=== PATIENT | male | born 1965 | race Caucasian/White ===

== ENCOUNTER 2017-08-01 16:11 | Emergency (ER) | payer SELFPAY ==
--- NOTE | 2017-08-01 18:15 | ER Document Report ---
ED Medical Screen (RME) - General Chief Complaint: Chest Pain Stated Complaint: CHEST PAIN Time Seen by Provider: 08/01/17 18:13 Mode of Arrival: Medic Information source: Patient Notes: 51-year-old male chronic back pain presents with complaints of sudden left flank pain radiating to his umbilicus. Patient notes abdominal distention I have greeted and performed a rapid initial assessment of this patient. A comprehensive ED assessment and evaluation of the patient, analysis of test results and completion of the medical decision making process will be conducted by additional ED providers. PHYSICAL EXAMINATION: GENERAL: Well-appearing, well-nourished and in moderate distress HEAD: Atraumatic, normocephalic. EYES: Pupils equal round extraocular movements intact, conjunctiva are normal. ENT: Nares patent NECK: Normal range of motion LUNGS: No respiratory distress Abdominal exam: Abdominal distention tenderness upon palpation Musculoskeletal: Normal range of motion NEUROLOGICAL: Normal speech, normal gait. PSYCH: Normal mood, normal affect. SKIN: Warm, Dry, normal turgor, no rashes or lesions noted. Immediate concerns for dissection, patient is diabetic but will be taken emergently for CT angiogram of abdomen chest and pelvis, patient denies any renal issues I discussed renal failure and necessity for contrast and patient agrees TRAVEL OUTSIDE OF THE [place] IN LAST 30 DAYS: No - Related Data Allergies/Adverse Reactions: No Known Allergies Allergy (Verified 08/01/17 16:15) Physical Exam - Vital signs Vitals: Temp Pulse Resp BP Pulse Ox 98.7 F 113 H 18 117/80 98 08/01/17 16:23 08/01/17 16:23 08/01/17 16:23 08/01/17 16:23 08/01/17 16:23 Course - Vital Signs Vital signs: Temp Pulse Resp BP Pulse Ox 98.7 F 113 H 18 117/80 98 08/01/17 16:23 08/01/17 16:23 08/01/17 16:23 08/01/17 16:23 08/01/17 16:23
--- NOTE | 2017-08-01 18:57 | RADIOLOGY REPORT (SQ) ---
EXAM DESCRIPTION: CTA CHEST COMPLETED DATE/TIME: 08/01/2017 6:42 pm REASON FOR STUDY: evaluate aorta COMPARISON: None. TECHNIQUE: CT scan of the chest performed using helical scanning technique with dynamic intravenous contrast injection. Images reviewed with lung, soft tissue and bone windows. Reconstructed coronal and sagittal MPR images reviewed. Additional 3 dimensional post-processing performed to develop Maximal Intensity Projection images (ND P). All images stored on PACS. All CT scanners at this facility use dose modulation, iterative reconstruction, and/or weight based d osing when appropriate to reduce radiation dose to as low as reasonably achievable (ALARA). [facility]: Dose Right [facility]: CareDose [facility]: Dose Right [facility]: Teradose 4D [facility]: Needish CONTRAST TYPE AND DOSE: 100 mL Isovue 370 Contrast bolus optimized for the pulmonary arteries. Not diagnostic for the aorta. RENAL FUNCTION: Not available RADIATION DOSE: CT Rad equipment meets quality standard of care and radiation dose reduction techniq ues were employed. CTDIvol: 16.2 - 28.3 mGy. DLP: 2173 mGy-cm. . LIMITATIONS: None. FINDINGS: LUNGS AND PLEURA: No masses, infiltrates, pneumothorax. No pleural effusions, calcificati ons. AORTA AND GREAT VESSELS: No aneurysm. Contrast bolus not optimized for the aorta. HEART: No pericardial effusion. No significant coronary artery calcifications. PULMONARY ARTERIES: No emboli visualized in the main pulmonary arteries or the segmental branches. HILAR AND MEDIASTINAL STRUCTURES: No identified masses or abnormal nodes. HARDWARE: None in the chest. UPPER ABDOMEN: See results under abdominal CT scan THYROID AND OTHER SOFT TISSUES: No masses. No adenopathy. BONES: No acute or significant finding. 3D MIPS: Confirm above findings. OTHER: No other significant finding. IMPRESSION: No evidence for a thoracic aortic aneurysm or dissection. No evidence for pulmonary emb olic disease. No acute consolidations or pleural effusions are identified. Other findings as noted above COMMENT: Quality ID # [id number]: Final reports with documentation of one or more dose reduction techniques (e.g., Automated exposure control, adjustment of the mA and/or kV according to patient size, use of iterative reconstruction technique) TECHNICAL DOCUMENTATION: JOB ID: [id number]- All Rights Reserved
--- NOTE | 2017-08-01 19:03 | RADIOLOGY REPORT (SQ) ---
EXAM DESCRIPTION: CTA ABDOMEN/PELVIS W WO COMPLETED DATE/TIME: 08/01/2017 6:42 pm REASON FOR STUDY: evaluate aorta COMPARISON: None. TECHNIQUE: CT scan of the abdominal aorta extending to the iliac bifurcation performed with intraven ous contrast using helical scanning technique with dynamic intravenous contrast injection. Images rev iewed with lung, soft tissue, and bone windows. Reconstructed coronal and sagittal MPR images reviewe d. All images stored on PACS. Advanced 3D imaging as volume rendering, MIPS, SSD performed? yes All CT scanners at this facility use dose modulation, iterative reconstruction, and/or weight based d osing when appropriate to reduce radiation dose to as low as reasonably achievable (ALARA). [facility]: Dose Right [facility]: CareDose [facility]: Dose Right [facility]: Teradose 4D [facility]: Tracab CONTRAST TYPE AND DOSE: contrast/concentration: Isovue 370.00 mg/ml; Total Contrast Delivered: 100.0 ml; Total Saline Delivered: 90.0 ml RENAL FUNCTION: Not available LIMITATIONS: None. FINDINGS: POST-CONTRAST IMAGING: AORTA AND VESSELS: No aneurysm. No dissection. Renal arteries, SMA, celiac without stenosis. LUNG BASES: No significant findings. No nodules or infiltrates. LIVER: Normal size. No masses or dilated ducts. There is diffuse fatty infiltration of the liver. SPLEEN: Normal size. No focal lesions. PANCREAS: No masses. No significant calcifications. No adjacent inflammation or peripancreatic fluid collections. Pancreatic duct not dilated. GALLBLADDER: No identified stones by CT criteria. No inflammatory changes to suggest cholecystitis. ADRENAL GLANDS: No significant masses or asymmetry. RIGHT KIDNEY AND URETER: No mass, calculi or urinary tract obstruction. LEFT KIDNEY AND URETER: No mass, calculi or urinary tract obstruction. RETROPERITONEUM: No retroperitoneal adenopathy, hemorrhage or masses. There is some ill-defined incr eased density in the central mesenteric fat which could be related to edematous or inflammatory marin es BOWEL AND PERITONEAL CAVITY: No masses or inflammatory changes. No free fluid or peritoneal masses. APPENDIX: Normal. ABDOMINAL WALL: No masses. No hernias. BONY STRUCTURES: No significant or acute findings. 3-D IMAGING: Confirms the above findings. OTHER: No other significant finding. IMPRESSION: NO ABDOMINAL AORTIC ANEURYSM, DISSECTION OR SIGNIFICANT STENOSIS. Diffuse fatty infiltr ation of the liver. There is some ill-defined increased density in the central mesenteric fat which could be related to edematous or inflammatory changes. Other findings as noted above TECHNICAL DOCUMENTATION: JOB ID: [id number] Quality ID # [id number]: Final reports with documentation of one or more dose reduction techniques (e.g., Au tomated exposure control, adjustment of the mA and/or kV according to patient size, use of iterative reconstruction technique) 2010 [email or web address]- All Rights Reserved
[2017-08-01 19:13] LABS: ABSOLUTE BASOPHILS # (AUTO) 0.1 10^3/uL (0.0-0.2); ABSOLUTE EOSINOPHILS # (AUTO) 0.2 10^3/uL (0.0-0.6); ABSOLUTE LYMPHOCYTES (AUTO) 2.5 10^3/uL (0.5-4.7); ABSOLUTE MONOCYTES (AUTO) 0.6 10^3/uL (0.1-1.4); BASOPHILS % (AUTO) 0.5 % (0-2); EOSINOPHILS % (AUTO) 2.4 % (0-6); HEMATOCRIT 48.1 % (37.9-51.0); HEMOGLOBIN 16.9 g/dL (13.5-17.0); MEAN CORPUSCULAR HEMOGLOBIN 31.4 pg (27.0-33.4); MEAN CORPUSCULAR HGB CONC 35.3 g/dL (32.0-36.0); MEAN CORPUSCULAR VOLUME 89 fl (80-97); MONOCYTES % (AUTO) 6.1 % (3-13); PLATELET COUNT 262 10^3/uL (150-450); RED CELL DISTRIBUTION WIDTH 13.2 % (11.5-14.0); TOTAL CELLS COUNTED % (AUTO) 100 %; WHITE BLOOD COUNT 10.4 10^3/uL (4.0-10.5)
[2017-08-01 19:26] LABS: ALANINE AMINOTRANSFERASE 41 U/L (21-72); ALBUMIN 4.6 g/dL (3.5-5.0); ALKALINE PHOSPHATASE 106 U/L (38-126); ASPARTATE AMINO TRANSFERASE 18 U/L (17-59); BILIRUBIN,DIRECT 0.2 mg/dL (0.0-0.4); BLOOD UREA NITROGEN 27 mg/dL (7-20); CARBON DIOXIDE 19 mmol/L (22-30); CHLORIDE 91 mmol/L (98-107); CREATINE KINASE 43 U/L (55-170); GLUCOSE 255 mg/dL (75-110); POTASSIUM 5.3 mmol/L (3.6-5.0); TOTAL PROTEIN 7.5 g/dL (6.3-8.2)
[2017-08-01 19:33] LABS: SODIUM 130.2 mmol/L (137-145)
[2017-08-01 19:34] LABS: ANION GAP 20 (5-19)
[2017-08-01 19:38] LABS: CREATINE KINASE MB 1.09 ng/mL (<4.55); TROPONIN I < 0.012 ng/mL
[2017-08-01] MEDS ORDERED: LIDOCAINE 5% (700 MG) TRANSDERMAL ADH..PATCH TP ONE (19:39)
[2017-08-01] MEDS ORDERED: ACETAMINOPHEN 325 MG TABLET PO ONE (19:40)
[2017-08-01] MEDS ORDERED: MORPHINE SULFATE IR 15 MG TABLET PO ONE (19:42)
[2017-08-01] MEDS ORDERED: KETOROLAC TROMETHAMINE 60 MG/2 ML SDV IM ONE (19:42)
--- NOTE | 2017-08-01 19:51 | ER Document Report ---
ED General - General Chief Complaint: Chest Pain Stated Complaint: CHEST PAIN Time Seen by Provider: 08/01/17 18:13 Mode of Arrival: Medic Notes: Patient is a 51-year-old male, with a past medical history of diabetes, hypertension hyperlipidemia, chronic back pain, who presents with 3 weeks of intermittent chest, back and abdominal pain. He describes these as severe, constant, aching pains when they occur and then spontaneously resolved. However he notes over the past 1 week his primary concern to become his back pain which he describes as constant, severe, stabbing pain to his bilateral low back that radiates around into his abdomen. He states that acutely worsened today which is what prompted him to come to the hospital. Nothing improves or worsens his symptoms. He has been trying naproxen without relief. He denies any syncope, shortness of breath, hemoptysis, melena or hematochezia. He does note that he has been quite constipated. He has not seen a primary care doctor regarding today's concerns as he does not have insurance. TRAVEL OUTSIDE OF THE [place] IN LAST 30 DAYS: No - Related Data Allergies/Adverse Reactions: No Known Allergies Allergy (Verified 08/01/17 16:15) Past Medical History - General Information source: Patient - Social History Smoking Status: Former Smoker Chew tobacco use (# tins/day): No Frequency of alcohol use: Occasional Drug Abuse: None Lives with: Family Family History: Reviewed & Not Pertinent Patient has suicidal ideation: No Patient has homicidal ideation: No - Past Medical History Cardiac Medical History: Reports: Hx Hypertension Endocrine Medical History: Reports: Hx Diabetes Mellitus Type 2 Renal/ Medical History: Denies: Hx Peritoneal Dialysis Review of Systems - Review of Systems Notes: Constitutional: Negative for fever. HENT: Negative for sore throat. Eyes: Negative for visual changes. Cardiovascular: Positive for chest pain. Respiratory: Negative for shortness of breath. Gastrointestinal: Positive for abdominal pain and cramping Genitourinary: Negative for dysuria. Musculoskeletal: Positive for low back pain Skin: Negative for rash. Neurological: Negative for headaches, weakness or numbness. 10 point ROS negative except as marked above and in HPI. Physical Exam - Vital signs Vitals: Temp Pulse Resp BP Pulse Ox 98.7 F 113 H 18 117/80 98 08/01/17 16:23 08/01/17 16:23 08/01/17 16:23 08/01/17 16:23 08/01/17 16:23 Interpretation: Tachycardic Notes: PHYSICAL EXAMINATION: GENERAL: Appears uncomfortable but in no acute distress HEAD: Atraumatic, normocephalic. EYES: Pupils equal round and reactive to light, extraocular movements intact, sclera anicteric, conjunctiva are normal. ENT: nares patent, oropharynx clear without exudates. Dry mucous membranes. NECK: Normal range of motion, supple without lymphadenopathy LUNGS: Breath sounds clear to auscultation bilaterally and equal. No wheezes rales or rhonchi. HEART: Regular tachycardia without murmurs ABDOMEN: Soft, nontender, normoactive bowel sounds. No guarding, no rebound. No masses appreciated. Back: Diffuse bilateral paralumbar spinal tenderness on palpation, no midline spinal tenderness, step-offs or deformities EXTREMITIES: Normal range of motion, no pitting or edema. No cyanosis. NEUROLOGICAL: 5 out of 5 strength both distally and proximally bilateral lower extremities. 2+ patellar reflexes bilaterally. No clonus. Sensation grossly intact in the bilateral lower extremities. Patient is able to ambulate without difficulty. PSYCH: Moderately anxious SKIN: Warm, Dry, normal turgor, no rashes or lesions noted. Course - Re-evaluation Re-evalutation: 08/01/17 19:53 Patient presents with 3 weeks of ongoing low back pain, chest wall discomfort and abdominal pain. Patient appears uncomfortable, is tachycardic vitals otherwise within normal limits. CT of the chest abdomen pelvis was ordered in triage for evaluation of a possible dissection. This is noted to be unremarkable throughout without any evidence of acute aortic pathology, appendicitis, biliary pathology, acute pancreatitis, pulmonary embolus, or any electrical pathology. Patient's laboratories are notable for signs of dehydration with hyponatremia, hyperkalemia, and an elevated urea. Patient is also mildly hyperglycemic. Will obtain a venous blood gas to further clarify as well as urinalysis. Will provide IV fluids and pain control. Patient's examination is notable only for diffuse low back tenderness but no midline step- offs or deformities. His neurologic exam is unremarkable with symmetric strength both distally and proximally the lower extremity's, 2+ patellar reflexes. Patient has also been noted to ambulate in the emergency department. He has not had any bowel or bladder incontinence. No urinary retention. 08/01/17 22:34 Patient appears markedly improved, sitting up into the bed, smiling, remarks to me how much better he feels at this point. His heart rate is still mildly elevated currently at 106 the patient's urinalysis did demonstrate marketed dehydration as did his compressive metabolic panel. He has received a liter of IV fluids here and is continue to drink without difficulty. At this point I do not suspect any acute life-threatening pathology based on the normal CT of his chest abdomen and pelvis, labs, and his marketed improvement in appearance and symptoms at this time. At this time will discharge with return precautions and follow-up recommendations. Verbal discharge instructions given a the bedside and opportunity for questions given. Medication warnings reviewed. Patient is in agreement with this plan and has verbalized understanding of return precautions and the need for primary care follow-up in the next 24-72 hours. - Vital Signs Vital signs: Temp Pulse Resp BP Pulse Ox 98.7 F 113 H 18 126/96 H 100 08/01/17 16:23 08/01/17 16:23 08/01/17 22:30 08/01/17 22:30 08/01/17 22:30 - Laboratory Result Diagrams: 08/01/17 18:48 08/01/17 18:48 Laboratory results interpreted by me: 08/01/17 08/01/17 08/01/17 18:48 20:25 20:25 VBG pCO2 34.0 L Sodium 130.2 L Potassium 5.3 H Chloride 91 L Carbon Dioxide 19 L Anion Gap 20 H BUN 27 H Glucose 255 H Creatine Kinase 43 L Urine Glucose (UA) >=500 H Urine Ketones 80 H - Diagnostic Test Radiology reviewed: Reports reviewed Discharge - Discharge Clinical Impression: Chest wall pain, Dehydration, Generalized abdominal pain Low back pain Qualifiers: Chronicity: acute Back pain laterality: bilateral Sciatica presence: without sciatica Qualified Code(s): M54.5 - Low back pain Condition: Good Disposition: HOME, SELF-CARE Additional Instructions: For your pain: Take ibuprofen 600 mg and acetaminophen 1000 mg every 6 hours together as needed for pain. If this does not control your pain you may take 15 mg of oral morphine every 4 hours as needed. Please be very careful about using the oral morphine and only use this for severe pain. Also apply lidocaine patches to her low back and use heat regularly. Return if you have worsening of your pain, bowel or bladder incontinence, urinary retention, persistent vomiting, pass out, develop a fever, or have any other symptoms that are worrisome to you. Prescriptions: Morphine Sulfate [Morphine Ir 15 mg Tablet] 15 mg PO Q4HP PRN #12 tablet PRN Reason: Referrals: LADONNA SANCHEZ MD [Primary Care Provider] - Follow up as needed
[2017-08-01] MEDS ORDERED: NORMAL SALINE 1000 ML 1,000 ML IV ONE ×2 (19:52→20:47)
[2017-08-01 20:39] LABS: VENOUS BLOOD BASE EXCESS -2.2 mmol/L; VENOUS BLOOD HCO3 21.4 mmol/L (20-32); VENOUS BLOOD PH 7.42 (7.30-7.42)
[2017-08-01 20:43] LABS: APPEARANCE,URINE CLEAR; BILIRUBIN,URINE NEGATIVE (NEGATIVE); COLOR,URINE YELLOW; GLUCOSE, URINE >=500 mg/dL (NEGATIVE); KETONES,URINE 80 mg/dL (NEGATIVE); LEUKOCYTE ESTERASE,URINE NEGATIVE (NEGATIVE); NITRITE,URINE NEGATIVE (NEGATIVE); PROTEIN,URINE NEGATIVE (NEGATIVE); URINE SPECIFIC GRAVITY 1.039; UROBILINOGEN,URINE NEGATIVE mg/dL (<2.0)
[2017-08-01] MEDS ORDERED: HYDROMORPHONE HCL INJ/PF 2 MG/ML AMPULE IV ONE (21:27)
--- NOTE | 2017-08-01 22:10 | EKG REPORT ---
SEVERITY:- ABNORMAL ECG - SINUS TACHYCARDIA PROBABLE INFERIOR INFARCT, OLD : Confirmed by: Aundrea Chowdary 01-Aug-2017 22:09:44
[2017-08-01 22:49] VITALS: BP 126/96
== END 2017-08-01 23:23 | disposition home or self-care (01) ==
LOC: ER 16:11
DX: R07.9 Chest pain, unspecified (principal); E86.0 Dehydration; R10.84 Generalized abdominal pain; M54.5 Low back pain; E11.9 Type 2 diabetes mellitus without complications; I10 Essential (primary) hypertension
CPT/HCPCS: 93005; 99285; 96372; 96360; 96361; 36415; 82553; 82550; 85025; 80053; 81001; 84484; 82803; 71275; 74174; 93010; J1885; J7030